=== PATIENT | female | born 1945 | race Caucasian/White ===

== ENCOUNTER 2021-01-22 16:13 | Emergency (ER) | payer MEDICARE, OTHER, SELFPAY ==
[2021-01-22 16:30] VITALS: BP 165/68; PULSE 66; RESP 16; TEMP 37.1; O2SAT 98; BMI 27.8
--- NOTE | 2021-01-22 16:44 | HMH.EDGENADL ---
ED Disposition Clinical Impression: Chest wall muscle strain Qualifiers: Encounter type: initial encounter Qualified Code(s): S29.011A - Strain of muscle and tendon of front wall of thorax, initial encounter Disposition: Home, Self-Care Condition on Discharge: Good Instructions: DI for Muscle Strain, How to Prevent Falls Additional Instructions: Ibuprofen as prescribed for pain. Follow-up with primary care provider if not improved in 3 to 4 days. Prescriptions: Ibuprofen [Ibuprofen 600mg Tab] 600 mg PO Q6HP PRN #20 tab PRN Reason: Moderate Pain Transmission Status: Pending to [facility] [id number] Referrals: Ar Tyler [Primary Care Provider] - - Critical Care Critical Care Time: No Attestation: On 01/22/21, the high probability of a clinically significant, sudden or life threatening deterioration of the following system(s) required my full and direct attention, intervention and personal management. The time I documented below is in addition to time spent performing reported procedures but includes the following listed in this critical care notation. Medical Decision Making - Christophe Inquiry Pt receiving controlled substance: No Vital Signs: 01/22/21 16:30 01/22/21 17:33 Temperature 98.8 F Temperature Source Oral Pulse Rate 77 Pulse Rate [Radial] 66 Respiratory Rate 16 12 Blood Pressure 150/67 H Blood Pressure [Right Arm] 165/68 H Blood Pressure Mean [Right Arm] 100 Blood Pressure Source Automatic Cuff Blood Pressure Position Sitting Blood Pressure Position [Right Arm] Sitting 02 Sat by Pulse Oximetry 98 95 Oxygen Delivery Method Room Air Room Air Orders (Tests/Meds): ORDERS Category Date Time Status XR ribs LT min 3V w CXR1V Stat Exams 01/22/21 16:50 Taken - Radiology Data #1 Image(s): Chest (left ribs) Image Reviewed: Yes I reviewed the patient's radiology image Preliminary Findings: Normal/NAD Medical Decision Narrative: Discussed medications for pain relief. The patient does not want any controlled substances. She has a to take care of at home. She prefers prescription strength ibuprofen. General Adult HPI - General Chief complaint: Fall Stated complaint: AO 01/22@1830 FELL INJURED LEFT SIDE AND BACK Time Seen by Provider: 01/22/21 16:44 Mode of Arrival: Ambulatory Limitations: No Limitations Description of Symptoms (Recalled from ER Triage Doc. by RN): to ed per pvt car with c/o back and chest pain after a fall yesterday. pt states tripped over a gardening stool and fell, states as she was falling she twisted her upper body and had sudden onset of lt side chest pain worse with inspiration and movement. states when she fell she landed on a rock with pain to lt side upper back. - History of Present Illness HPI narrative: She fell yesterday while gardening. To try and protect her head she threw her left arm upwards and as she did so she felt a sharp pain in her left anterior chest deep to her breast. The pain occurred before she hit the ground. She says she landed on her left side of her back on a step. She has some mild pain in her left posterior thorax infrascapular area, but mostly has pain in her left anterior chest which increases with coughing and breathing, movement, and palpation below her breast. No hemoptysis. No shortness of breath. No abdominal pain or vomiting. No pain over the spine. No head or neck injury. When I discussed the possibility of a rib injury she says oh, I thought more muscle injury . She says her pain has decreased from what it was yesterday. She has tried Tylenol and Advil [id number] without relief. - Related Data Previous Rx's Medication Instructions Recorded Albuterol Sulfate [Albuterol HFA 1 - 2 puffs IH Q4-6H PRN #1 inh 08/15/19 Inhaler] Ibuprofen [Ibuprofen 600mg Tab] 600 mg PO Q6HP PRN #20 tab 01/22/21 Allergies Allergy/AdvReac Type Severity Reaction Status Date / Time hannah Hickman
--- NOTE | 2021-01-22 16:50 | XR_ITS ---
PROCEDURE: XR RIBS LT MIN 3V W CXR1V CLINICAL INDICATION: fall, injury Pain following injury COMPARISON: No exams were available for comparison FINDINGS: Minimal cortical angulation involves the anterior aspect of the left 5th and 6th ribs consistent with nondisplaced fractures. These are age indeterminate. There appears to be an old fracture of the left 4th and 3rd rib. Frontal view of the chest shows no acute finding IMPRESSION: Left 5th and 6th rib fractures nondisplaced age indeterminate with old left 3rd and 4th rib fractures. Dictated by: Quan Kumar MD 01/23/2021 05:38 Quan Kumar MD in [place] 01/23/2021 05:38
--- NOTE | 2021-01-22 17:15 | PC.NURSE ---
called to get pt a tray
--- NOTE | 2021-01-22 17:24 | PC.NURSE ---
bladimir brought tray for pt
[2021-01-22 17:33] VITALS: BP 150/67; PULSE 77; RESP 12; O2SAT 95
[2021-01-22 18:18] VITALS: BP 132/74; PULSE 68; RESP 20; TEMP 36.6; O2SAT 98
== END 2021-01-22 18:20 | disposition home or self-care (01) ==
PROVIDERS: Emergency Provider Emergency Medicine; PCP Family Medicine
DX: S29.011A Strain of muscle and tendon of front wall of thorax, initial encounter (principal); W01.0XXA Fall on same level from slipping, tripping and stumbling without subsequent striking against object, initial encounter; Y92.017 Garden or yard in single-family (private) house as the place of occurrence of the external cause; E11.9 Type 2 diabetes mellitus without complications
CPT/HCPCS: 71101; 99282

== ENCOUNTER 2022-09-24 17:58 | Emergency (ER) | payer MEDICARE, SELFPAY ==
--- NOTE | 2022-09-24 19:41 | EXP.UTC ---
Discharge Plan Disposition Patient Disposition: Home, Self-Care Condition: Good Prescriptions Prescriptions: New benzonatate [benzonatate] 100 mg capsule 100 mg PO TIDP PRN (Reason: Cough) Qty: 30 0RF amoxicillin-pot clavulanate 500-125 mg tablet 1 tab PO BID Qty: 20 0RF methylprednisolone 4 mg Tablets,Dose Pack 4 mg PO DIRECTED Qty: 21 0RF No Action Tradjenta 5 mg tablet 5 mg PO diclofenac sodium 75 mg tablet,delayed release (DR/EC) 75 mg PO omeprazole 20 mg capsule,delayed release(DR/EC) 20 mg PO metformin 1,000 mg tablet 1,000 mg PO alendronate 70 mg tablet 70 mg PO rosuvastatin 40 mg tablet 40 mg PO aspirin 81 mg tablet,chewable 81 mg PO DAILY cholecalciferol (vitamin D3) [Vitamin D3] 125 mcg (5,000 unit) tablet 125 mcg PO DAILY vitamin K2 100 mcg capsule 100 mcg PO DAILY rsgxkjq-gypi-joqac-oreg-capryl 100 mg-150 mg- 50 mg-150 mg capsule 1 cap PO DAILY fluconazole [Diflucan] 200 mg tablet 200 mg PO DAILY Qty: 10 3RF fluticasone propionate 50 mcg/actuation spray,suspension INTRANASAL Referrals Follow up/Referrals: Santo Odonnell [Primary Care Provider] - See instructions Activity Restrictions/Add. Instructions Additional Instructions/Restrictions: Drink plenty of fluids. Take tylenol or ibuprofen for pain or fever. Take the medications as directed. Follow up with your regular doctor. GO TO THE ER FOR ANY WORSENING SYMPTOMS Clinical Impressions Clinical Impression: Acute bronchitis Instructions Patient Instructions: DI for Acute Bronchitis Discharge ED Provider: [facility] General Stated complaint: COUGH,CONGESTION,HEADACHE Time Seen by Provider: 09/24/22 19:40 History of Present Illness Provider Complaint: she states that for the past 1 week she has had a cough, chest congestion, sinus congestion and a sore throat. Related Data Home Medications Medication Instructions Recorded Confirmed alendronate 70 mg tablet 70 mg PO 06/24/21 08/26/21 aspirin 81 mg chewable tablet 81 mg PO DAILY 06/24/21 08/26/21 cholecalciferol (vitamin D3) 125 125 mcg PO DAILY 06/24/21 08/26/21 mcg (5,000 unit) tablet (Vitamin D3) diclofenac sodium 75 mg 75 mg PO 06/24/21 08/26/21 tablet,delayed release linagliptin 5 mg tablet (Tradjenta) 5 mg PO 06/24/21 08/26/21 metformin 1,000 mg tablet 1,000 mg PO 06/24/21 08/26/21 omeprazole 20 mg capsule,delayed 20 mg PO 06/24/21 08/26/21 release rosuvastatin 40 mg tablet 40 mg PO 06/24/21 08/26/21 tumeric 100 mg-mayda 150 mg-olive 1 cap PO DAILY 06/24/21 08/26/21 50 mg-oreg 150 mg-caprylate capsule vitamin K2 100 mcg capsule 100 mcg PO DAILY 06/24/21 08/26/21 fluticasone propionate 50 g intranasal 08/26/21 08/26/21 mcg/actuation nasal spray,suspension Previous Rx's Medication Instructions Recorded fluconazole 200 mg tablet 200 mg PO DAILY #10 tabs 06/24/21 (Diflucan) amoxicillin 500 mg-potassium 1 tab PO BID #20 tabs 09/24/22 clavulanate 125 mg tablet benzonatate 100 mg capsule 100 mg PO TIDP PRN Cough #30 caps 09/24/22 methylprednisolone 4 mg tablets in 4 mg PO DIRECTED #21 tabs 09/24/22 a dose pack Allergies Allergy/AdvReac Type Severity Reaction Status Date / Time codeine Allergy Verified 09/24/22 19:59 [facility] Disclaimer: The information contained in this section may have been updated after the patient was seen, as this information can be updated by other users. Social History Smoking Status: Never smoker second hand exposure: No alcohol intake: never current occupational status: unemployed Travel in the last 8 weeks: None current occupational exposures/hazards: No caffeine: Yes ROS Obtained: Yes All systems reviewed & no additional complaints except as documented Constitutional Constitutional: Reports chills and
--- NOTE | 2022-09-24 19:55 | XR_ITS ---
PROCEDURE INFORMATION: Exam: XR Chest Exam date and time: 09/24/2022 7:57 PM Age: 76 years old Clinical indication: Cough; Additional info: Cough x8 days TECHNIQUE: Imaging protocol: Radiologic exam of the chest. Views: 2 views. COMPARISON: CR XR RIBS LT MIN 3V W CXR1V 01/22/2021 5:36 PM FINDINGS: Lungs: No evidence of pneumonia or interstitial edema. Pleural spaces: Unremarkable. No pleural effusion. No pneumothorax. Heart/Mediastinum: Unremarkable. No cardiomegaly. Bones/joints: Unremarkable. IMPRESSION: No evidence of pneumonia or interstitial edema.
[2022-09-24 19:56] LABS: Adenovirus,PCR Not Detected (NotDetected); Bordetella Pertussis Not Detected (NotDetected); Chlamydophila Pneumoniae, PCR Not Detected (NotDetected); Coronavirus 229E Not Detected (NotDetected); Coronavirus NL63 Not Detected (NotDetected); Coronavirus OC43 Not Detected (NotDetected); Coronovirus HKU1,PCR Not Detected (NotDetected); Human Metapneumovirus Not Detected (NotDetected); Influenza A, PCR Not Detected (NotDetected); Influenza AH1, 2009 Not Detected (NotDetected); Influenza AH1, PCR Not Detected (NotDetected); Influenza AH3,PCR Not Detected (NotDetected); Influenza B, PCR Not Detected (NotDetected); Mycoplasma Pneumoniae, PCR Not Detected (NotDetected); Parainfluenza 1, PCR Not Detected (NotDetected); Parainfluenza 2, PCR Not Detected (NotDetected); Parainfluenza 3, PCR Not Detected (NotDetected); Parainfluenza 4, PCR Not Detected (NotDetected); Respiratory Syncytial Virus Not Detected (NotDetected); Rhinovirus/Enterovirus Not Detected (NotDetected)
[2022-09-24 19:57] VITALS: BP 153/71; PULSE 83; RESP 18; TEMP 37.4; O2SAT 97; BMI 27.0
[2022-09-24 20:03] LABS: UTC Strep Screen (Rapid) Negative (Negative)
[2022-09-24 20:36] VITALS: BP 153/71; PULSE 83; RESP 18; TEMP 37.4
[2022-09-25 03:59] LABS: Coronavirus 19, PCR Detected (NotDetected)
== END 2022-09-24 20:37 | disposition home or self-care (01) ==
PROVIDERS: Emergency Provider Nurse Practitioner Family; PCP Family Medicine
DX: J20.9 Acute bronchitis, unspecified (principal)
CPT/HCPCS: 71046; 87581; 87632; 87798; 87880; 99212; C9803; G0463; U0003; U0005